=== PATIENT | male | born 1955 | race Hispanic/Latino ===

== ENCOUNTER 2020-02-06 21:24 | Emergency (ER) | payer SELFPAY ==
--- NOTE | 2020-02-06 21:38 | Emergency Department Report ---
ED General Adult HPI - General Chief complaint: Overdose Stated complaint: OVERDOSE PUI?: No Time Seen by Provider: 02/06/20 21:29 Source: patient, EMS ( EMS documentation not available at time of chart dictation ), RN notes reviewed Mode of arrival: Stretcher Limitations: Other (Intoxication) - History of Present Illness Initial comments: Verbal report received from emergency medical services. EMS documentation is no available at this time for me to review. The patient is a 64-year-old gentleman. He is not known to myself previously. He states he has no chronic medical conditions. He is brought to the hospital by emergency medical services for intoxication and possible syncope/overdose. EMS states that the patient's significant other/girlfriend called him when the patient lost consciousness. The patient himself denies physical pain. He states "I smoked too much marijuana, and drink too much alcohol." He denies headache, neck pain, chest pain, abdominal pain, shortness of breath, Irritative and obstructive urinary symptoms. He is not homicidal suicidal. He states "there is nothing wrong with me, I am ready to go." Friends, family not available at this time for additional information/collateral information. -: Sudden Consistency: now resolved Improves with: none Worsens with: none Associated Symptoms: denies other symptoms - Related Data Previous Rx's Medication Instructions Recorded Last Taken Type Albuterol Mdi (or & Nicu Only) 1 puff IH QID #1 inha 04/09/14 Unknown Rx [ProAir HFA Inhaler] Azithromycin [Zithromax Z-BRITTNY] 250 mg PO DAILY #6 tablet 04/09/14 Unknown Rx predniSONE [Deltasone] 50 mg PO QDAY #5 tab 04/09/14 Unknown Rx Multivitamin with Folic Acid [[facility]vs 400 mcg PO QDAY #30 tablet 02/06/20 Unknown Rx One Daily Essential Tablet] Allergies Allergy/AdvReac Type Severity Reaction Status Date / Time aspirin Allergy Nausea Verified 04/09/14 17:07 ED Review of Systems ROS: Stated complaint: OVERDOSE Other details as noted in HPI Constitutional: denies: fever Eyes: denies: eye discharge ENT: denies: congestion Respiratory: denies: cough Cardiovascular: denies: chest pain Gastrointestinal: denies: abdominal pain Genitourinary: denies: dysuria Musculoskeletal: denies: back pain Neurological: denies: headache Psychiatric: denies: homicidal thoughts, suicidal thoughts ED Past Medical Hx - Past Medical History Previous Medical History?: Yes Additional medical history: High cholestrol - Surgical History Past Surgical History?: No - Social History Smoking Status: Current Every Day Smoker Substance Use Type: Alcohol - Medications Home Medications: Home Medications Medication Instructions Recorded Confirmed Last Taken Type Albuterol Mdi (or & Nicu Only) 1 puff IH QID #1 inha 04/09/14 Unknown Rx [ProAir HFA Inhaler] Azithromycin [Zithromax Z-BRITTNY] 250 mg PO DAILY #6 tablet 04/09/14 Unknown Rx predniSONE [Deltasone] 50 mg PO QDAY #5 tab 04/09/14 Unknown Rx Multivitamin with Folic Acid [[facility]vs 400 mcg PO QDAY #30 tablet 02/06/20 Unknown Rx One Daily Essential Tablet] ED Physical Exam - General Limitations: Other (Alcohol intoxication) General appearance: in no apparent distress, appears intoxicated - Head Head exam: Present: atraumatic, normocephalic - Eye Eye exam: Present: normal appearance, EOMI. Absent: nystagmus - ENT ENT exam: Present: normal exam, mucous membranes moist, normal external ear exam, other (Poor dentition) - Neck Neck exam: Present: normal inspection, full ROM. Absent: tenderness, meningismus - Respiratory Respiratory exam: Present: normal lung sounds bilaterally. Absent: respiratory distress - Cardiovascular Cardiovascular Exam: Present: regular rate, normal rhythm, normal heart sounds. Absent: bradycardia, tachycardia, irregular rhythm, systolic murmur, diastolic murmur, rubs, gallop - GI/Abdominal GI/Abdominal exam: Present: soft. Absent: distended, tenderness, guarding, rebound, rigid, pulsatile mass - Rectal Rectal exam: Present: deferred - Extremities Exam Extremities exam: Present: normal inspection, full ROM, other (2+ pulses noted in the bilateral upper and lower extremities. There is no palpable cord. negative Homans sign. Muscular compartments are soft. The pelvis is stable.). Absent: pedal edema, calf tenderness - Back Exam Back exam: Present: normal inspection, full ROM. Absent: tenderness, CVA tenderness (R), CVA tenderness (L), paraspinal tenderness, vertebral tenderness - Neurological Exam Neurological exam: Present: alert, other (No facial droop. Tongue midline. Extraocular movements intact bilaterally. Facial sensation intact to light touch in V1, V2, V3 distribution bilaterally. 5 and a 5 strength in 4 extremities. Sensation intact to light touch in 4 extremities.) - Psychiatric Psychiatric exam: Absent: homicidal ideation, suicidal ideation - Skin Skin exam: Present: warm, dry, intact, normal color. Absent: rash ED Course Vital Signs 02/06/20 02/06/20 21:57 22:30 Temperature 98.3 F Pulse Rate 85 72 Respiratory 18 18 Rate Blood Pressure 155/78 Blood Pressure 165/90 [Left] O2 Sat by Pulse 98 97 Oximetry - Reevaluation(s) Reevaluation #1: 02/06/20 21:54 Differential diagnosis, including but not limited to: Polysubstance intoxication, electrolyte derangement, intracranial injury, cervical spine injury Assessment and plan: 64-year-old gentleman who is clinically intoxicated, re ports consuming recreational alcohol and cannabis, with resolved episode of loss of consciousness. Patient is intoxicated at this time but protecting his airway, moving 4 extremities, and his external physical exam appears to be unremarkable. Patient placed on hold for intoxication, however he is cooperative, and not homicidal or suicidal. He states his ingestions were recreational in nature. We will obtain a serum laboratory studies to exclude aspirin/Tylenol overdose. X-ray of the chest is unremarkable to my interpretation, noncontrast CT scan of the brain and cervical spine pending. EKG is pending. Reassess after initial data points. Reevaluation #2: 02/06/20 22:58 Patient awake, alert, oriented, walking with a steady gait. He has a friend/significant other, by the name of Hazel, who is going to come by and pick him up. Reevaluation #3: 02/06/20 23:32 Patient observed for 2 hours. He did not lose consciousness. He walked with a steady gait. He was pleasant, calm and cooperative. He had a sober adult presented to the waiting room to pick him up, and he was discharged without incident. ED Medical Decision Making - Lab Data Result diagrams: 02/06/20 21:44 02/06/20 21:44 Vital Signs 02/06/20 21:57 Temperature 98.3 F Pulse Rate 85 Respiratory 18 Rate Blood Pressure 165/90 [Left] O2 Sat by Pulse 98 Oximetry Lab Results 02/06/20 Range/Units 21:44 Hgb 16.4 H (11.8-15.2) gm/dl Hct 47.0 H (35.5-45.6) % Plt Count 226 (140-440) K/mm3 - EKG Data -: EKG Interpreted by Me EKG shows normal: sinus rhythm Rate: normal - EKG Data When compared to previous EKG there are: previous EKG unavailable 02/06/20 22:41 Sinus rhythm, 73 bpm, normal axis, normal intervals, not a STEMI, poor R wave progression, abnormal EKG, not a STEMI. There is no prior for comparison - Radiology Data Radiology results: report reviewed, image reviewed interpreted by me: X-ray of the chest is negative for acute disease X-ray of the chest is negative for acute findings. CT scan of the brain and cervical spine negative for acute disease. Critical care attestation.: If time is entered above; I have spent that time in minutes in the direct care of this critically ill patient, excluding procedure time. ED Disposition Clinical Impression: Alcohol intoxication, History of marijuana use Disposition: DC-01 TO HOME OR SELFCARE Is pt being admited?: No Does the pt Need Aspirin: No Condition: Stable Additional Instructions: Do not drive or operate motor vehicles for the next 6 months, or until cleared to do so by a primary care doctor. Take the multivitamin as directed. Recommend that patient avoid consumption of alcohol and marijuana. Consumption of the aforementioned may impair judgment, and may lead to , disability, paralysis, loss of quality of life. Follow-up with a primary care doctor within the next week. Return to the emergency room right away with new pain, worsening pain, migration of pain, projectile vomiting, change in mental status, confusion, inability to tolerate liquid feeds, homicidality, suicidality, loss of consciousness, new, worsened or different symptoms not present on the initial emergency room evaluation. Prescriptions: Multivitamin with Folic Acid [[facility]vs One Daily Essential Tablet] 400 mcg PO QDAY #30 tablet Referrals: RADHA JORDAN MD [Staff Physician] - 3-[address] [facility] [Provider Group] - 3-5 Days
[2020-02-06 21:58] LABS: Hemoglobin 16.4 gm/dl (11.8-15.2)
--- NOTE | 2020-02-06 22:27 | XRay Report ---
CHEST 1 VIEW INDICATION: etoh syncope. COMPARISON: 04/09/2014. FINDINGS: Support devices: None. Heart: Within normal limits. Lungs/Pleura: No acute air space or interstitial disease. Additional findings: None. IMPRESSION: No acute abnormality. Signer Name: Rg Estevez MD Signed: 02/06/2020 10:22 PM Workstation Name: [id number]
[2020-02-06 22:31] LABS: BUN/Creatinine Ratio 7; Blood Urea Nitrogen 8 mg/dL (9-20); Calcium 9.2 mg/dL (8.4-10.2); Hemolysis Index 59
--- NOTE | 2020-02-06 22:37 | Cat Scan Report ---
CT CERVICAL SPINE WITHOUT CONTRAST INDICATION: etoh syncope closed head trauma. TECHNIQUE: All CT scans at this location are performed using CT dose reduction for ALARA by means of automated e xposure control. Axial CT images were obtained through the cervical spine. Sagittal and coronal reformatted images we re produced. COMPARISON: None available. FINDINGS: Fracture: None. Subluxation: None. Spinal canal: No significant compromise. Disc spaces: Moderate discogenic degenerative disease C2-4. [facility] like changes C4-C6 Facet joints: Normal. Paraspinal soft tissues: No soft tissue swelling. Normal. Additional findings: None. Lung apices: Normal. IMPRESSION: 1. No acute findings. Signer Name: Shan Ray MD Signed: 02/06/2020 10:32 PM Workstation Name: [id number]
--- NOTE | 2020-02-06 22:39 | Cat Scan Report ---
. CT HEAD WITHOUT CONTRAST INDICATION / CLINICAL INFORMATION: etoh syncope closed head trauma. TECHNIQUE: All CT scans at this location are performed using CT dose reduction for ALARA by means of automated e xposure control. COMPARISON: None available. FINDINGS: HEMORRHAGE: None. EXTRA-AXIAL SPACES: Normal in size and morphology for the patient's age. VENTRICULAR SYSTEM: Normal in size and morphology for the patient's age. CEREBRAL PARENCHYMA: No significant abnormality. No acute territorial infarct. Mild microangiopathy. MIDLINE SHIFT OR HERNIATION: None. CEREBELLUM / BRAINSTEM: No significant abnormality. ORBITS: Normal as visualized. SOFT TISSUES of HEAD: No significant abnormality. CALVARIUM: No significant abnormality. PARANASAL SINUSES / MASTOID AIR CELLS: Normal as visualized. ADDITIONAL FINDINGS: None. IMPRESSION: 1. No acute intracranial abnormality. Signer Name: Shan Ray MD Signed: 02/06/2020 10:35 PM Workstation Name: [id number]
[2020-02-06 22:55] VITALS: BP 155/78
== END 2020-02-06 23:42 | disposition home or self-care (01) ==
LOC: ED 21:24
DX: F10.129 Alcohol abuse with intoxication, unspecified (principal); F12.10 Cannabis abuse, uncomplicated; F17.200 Nicotine dependence, unspecified, uncomplicated; E78.5 Hyperlipidemia, unspecified; R55 Syncope and collapse
CPT/HCPCS: 36415; 70450; 71045; 72125; 80048; 80320; 82550; 83735; 85014; 85018; 85049; 93005; 99285; G0480